=== PATIENT | female | born 1970 | race Caucasian/White ===

== ENCOUNTER → 2020-01-31 09:45 | Outpatient (CLI) | payer OTHER, SELFPAY ==
--- NOTE | 2020-01-31 09:52 | XR_ITS ---
PROCEDURE: XR ANKLE WT BEARING LT MIN 3V CLINICAL INDICATION: pain COMPARISON: ANKR3 ANKLE-RT-3 VIEWS from 12/19/2015 ANKR3 ANKLE-RT-3 VIEWS from 03/27/2017 XR ANKLE WT BEARING RT MIN 3V from 01/31/2020 XR FOOT WT BEARING LT 3V from 01/31/2020 FINDINGS: Hypertrophic changes are present along the neck of the talus anteriorly and could be seen with impingement. Normal alignment. No fracture or dislocation. No lytic or blastic change IMPRESSION: Minimal hypertrophic change mid aspect of the talus anteriorly otherwise negative Dictated by: Derek Skinner MD 01/31/2020 10:42 Electronically signed by Derek Skinner MD in [place] 01/31/2020 10:42
--- NOTE | 2020-01-31 09:52 | XR_ITS ---
PROCEDURE: XR FOOT WT BEARING RT 3V CLINICAL INDICATION: pain COMPARISON: No exams were available for comparison FINDINGS: No fracture or dislocation. No lytic or blastic change. There is normal mineralization. The joint spaces are well-preserved. No significant degenerative/arthritic changes. No erosive changes evident. Other findings:There is a small calcaneal spur with some minimal calcification along the base of the spur nonspecific IMPRESSION: Small calcaneal spur otherwise Dictated by: Derek Skinner MD 01/31/2020 10:39 Electronically signed by Derek Skinner MD in [place] 01/31/2020 10:39
--- NOTE | 2020-01-31 09:52 | XR_ITS ---
PROCEDURE: XR ANKLE WT BEARING RT MIN 3V CLINICAL INDICATION: pain COMPARISON: ANKR3 ANKLE-RT-3 VIEWS from 12/19/2015 ANKR3 ANKLE-RT-3 VIEWS from 03/27/2017 FINDINGS: No fracture or dislocation. No lytic or blastic change. There is normal mineralization. The joint spaces are well-preserved. No significant degenerative/arthritic changes. No erosive changes evident. Other findings:None. IMPRESSION: No acute findings. Dictated by: Derek Skinner MD 01/31/2020 10:40 Electronically signed by Derek Skinner MD in [place] 01/31/2020 10:40
== END ==
PROVIDERS: PCP Nurse Practitioner; Visit Provider Podiatrist
DX: M25.572 Pain in left ankle and joints of left foot (principal); M79.672 Pain in left foot; M25.571 Pain in right ankle and joints of right foot; M79.671 Pain in right foot
CPT/HCPCS: 73610; 73630

== ENCOUNTER → 2020-11-08 09:36 | Outpatient (CLI) | payer OTHER, SELFPAY ==
[2020-11-08 10:13] LABS: Basophils # 0.1 K/mm3 (0-0.2); Basophils % 0.6 % (0.1-2.0); Eosinophils # 0.3 K/mm3 (0.0-0.4); Eosinophils % 3.7 % (0.1-12.0); Hematocrit 42.7 % (37.0-47.0); Hemoglobin 13.9 g/dL (12.2-16.2); Lymphocytes # 3.5 K/mm3 (0.7-4.5); Mean Corpuscular HGB Conc 32.5 g/dL (31.8-35.4); Mean Corpuscular Hemoglobin 30.6 pg (27.0-31.2); Mean Corpuscular Volume 94.1 fl (81-99); Mean Platelet Volume 6.7 fl (7.4-10.4); Monocytes # 0.8 K/mm3 (0.1-1.0); Monocytes % 9.4 % (1.7-9.3); Neutrophils # 4.2 K/mm3 (1.8-7.8); Neutrophils % 47.2 % (37.0-80.0); Platelet Count 427 K/mm3 (142-424); Red Blood Count 4.54 M/mm3 (4.20-5.40); White Blood Count 8.9 K/mm3 (4.8-10.8)
[2020-11-08 11:05] LABS: Alanine Aminotransferase 19 U/L (12-78); Albumin Level 4.5 g/dl (3.5-5.0); Albumin/Globulin Ratio 1.5 (1.1-1.8); Alkaline Phosphatase 92 U/L (38-126); Anion Gap 15.2 mEq/L (5-15); Aspartate Amino Transferase 26 U/L (14-36); Bilirubin,Total 0.5 mg/dl (0.2-1.3); Blood Urea Nitrogen 10 mg/dl (7-17); Calcium 9.9 mg/dl (8.4-10.2); Carbon Dioxide 25 mmol/L (22.0-30.0); Chloride 104 mmol/L (98-107); Chol/HDL Ratio 3.8 (1-3.5); Cholesterol 216 mg/dl (140-200); Estimated Glomerular Filt Rate 106 ml/min (>60); GFR (African American) 129 ML/MIN (>60); Globulin 3.1 g/dL (1.3-3.2); Glucose 99 mg/dl (74-100); HDL Cholesterol 57 mg/dl (40-60); Potassium 4.2 mmoL/L (3.5-5.1); Sodium 140 mmol/L (136-145); Total Protein,Serum 7.6 g/dl (6.3-8.2); Triglycerides 116 mg/dl (30-150); VLDL Cholesterol 23 mg/dL (0-40)
[2020-11-08 11:15] LABS: Direct LDL Cholesterol 133.08 mg/dL (100-129)
[2020-11-08 11:22] LABS: 25-OH Vitamin D, Total 64.7 ng/mL (30-100); Triiodothryronine (T3) Uptake 24 % (23.5-40.5)
[2020-11-08 11:23] LABS: T4 (Thyroxine) 8.3 ug/dl (5.53-11.0)
[2020-11-08 11:36] LABS: Thyroid Stimulating Hormone 1.44 uIU/mL (0.465-4.68)
[2020-11-08 11:39] LABS: Ferritin 64.1 ng/ml (6.24-137)
[2020-11-08 11:53] LABS: Vitamin B12 565 pg/mL (239-931)
== END ==
PROVIDERS: Visit Provider Internal Medicine Adolescent Medicine
DX: I10 Essential (primary) hypertension (principal); G25.81 Restless legs syndrome; G57.93 Unspecified mononeuropathy of bilateral lower limbs
CPT/HCPCS: 36415; 80053; 80061; 82306; 82607; 82728; 84436; 84443; 84479; 85025

== ENCOUNTER → 2020-11-09 10:20 | Outpatient (CLI) | payer OTHER, SELFPAY ==
[2020-11-10 11:08] LABS: Magnesium, Urine 3.9 mg/dL (Not Estab.)
[2020-11-10 12:24] LABS: Magnesium, Urine 24 Hr 33.2 mg/24 hr (12.0-293.0)
== END ==
PROVIDERS: Visit Provider Internal Medicine Adolescent Medicine
DX: I10 Essential (primary) hypertension (principal); G25.81 Restless legs syndrome; G57.93 Unspecified mononeuropathy of bilateral lower limbs
CPT/HCPCS: 83735

== ENCOUNTER → 2020-11-14 09:27 | Outpatient (CLI) | payer OTHER, SELFPAY ==
--- NOTE | 2020-11-14 09:31 | MM_ITS ---
PROCEDURE: MM DIG SCREENING MAMM BI W/CAD Digital Breast Tomosynthesis Included CLINICAL INDICATION: SCREENING There is no personal or family history of breast cancer. COMPARISON: Digital mammograms with CAD 11/08/2016 TECHNIQUE: Standard CC and MLO images and 3D Tomosynthesis was obtained. R2 CAD reviewed. FINDINGS: Mild scattered fibroglandular densities are seen in both breast on a of primarily fatty breast parenchyma. There are no CAD markings. There is a new small benign-appearing nodular density inner quadrant left breast best seen on the CC projection. Though this certainly has benign features a was not seen on the previous study and recommend the patient return for spot compression views and ultrasound for additional evaluation. There are no suspicious microcalcifications. IMPRESSION: Fibrofatty parenchyma with new lesion left breast BI-RAD Category: 0 Need Additional Imaging Evaluation FOLLOW-UP: IMM Immediate Follow-up Recommended (A letter has been sent to the patient regarding results of the study.) Dictated by: Dr. Nilson Mason MD 11/17/2020 10:40 Dr. Nilson Mason MD in [place] 11/17/2020 10:40
== END ==
PROVIDERS: PCP Internal Medicine Adolescent Medicine; Visit Provider Internal Medicine Adolescent Medicine
DX: Z12.31 Encounter for screening mammogram for malignant neoplasm of breast (principal)
CPT/HCPCS: 77063; 77067

== ENCOUNTER → 2020-12-04 13:37 | Outpatient (CLI) | payer OTHER, SELFPAY ==
--- NOTE | 2020-12-04 13:41 | MM_ITS ---
PROCEDURE: MM DIG MAMM DX UNILAT LT CAD Digital Breast Tomosynthesis Included Left breast ultrasound complete CLINICAL INDICATION: ABN MAMM Left breast nodule COMPARISON: MG DMSB DIGITAL MAMM-SCREEN BILATERAL from 09/18/2011 MG DMSB DIG MAMM-SCREEN TANIYA W/CAD from 11/08/2016 MG MM DIG SCREENING MAMM BI W/CAD from 11/14/2020 US US BREAST LT COMPLETE from 12/04/2020 TECHNIQUE: Spot-compression views and left breast ultrasound FINDINGS: There is a macrolobular well-circumscribed nodule measuring approximately 7 mm in the upper inner aspect of the left breast at the 11 o'clock region. No spiculations or architectural distortion. Left breast ultrasound: Scattered small lipomas are noted which do not account for the mammographic abnormality. In the upper inner quadrant at approximately 11 o'clock there is a complex hypoechoic lesion measuring 6 x 5 mm. There does appear to be some both solid and cystic components. This could be due to a complex cyst with some wall thickening. Ultrasound-guided FNA/core biopsy suggested. Mammotome biopsy not recommended due to prominent traversing vein just along the superficial aspect of the nodule. IMPRESSION: Mildly suspicious findings. Complex cyst 6 x 5 mm upper inner quadrant left breast corresponding to mammographic abnormality. FNA with core biopsies suggested under sonographic guidance BI-RAD Category: 4 Suspicious Abnormality - Biopsy Considered FOLLOW-UP: BIO Biopsy Recommended (A letter has been sent to the patient regarding results of the study.) Dictated by: Derek Skinner MD 12/08/2020 13:30 Derek Skniner MD in [place] 12/08/2020 13:30
== END ==
PROVIDERS: PCP Internal Medicine Adolescent Medicine; Visit Provider Internal Medicine Adolescent Medicine
DX: R92.8 Other abnormal and inconclusive findings on diagnostic imaging of breast (principal)
CPT/HCPCS: 76641; 77061; 77065; G0279

== ENCOUNTER → 2020-12-26 12:32 | Outpatient (CLI) | payer OTHER, SELFPAY ==
--- NOTE | 2020-12-26 | MM_ITS ---
PROCEDURE: US FNA BREAST CLINICAL INDICATION: ABN MAMM Abnormal mammogram and ultrasound showing a macrolobular discordant nodule at the 11 o'clock region of the left breast. COMPARISON: MG DMSB DIG MAMM-SCREEN TANIYA W/CAD from 11/08/2016 MG MM DIG SCREENING MAMM BI W/CAD from 11/14/2020 US US BREAST LT COMPLETE from 12/04/2020 MG MM DIG MAMM DX UNILAT LT CAD from 12/04/2020 MG MM DIG MAMM DX UNILAT LT CAD from 12/26/2020 FINDINGS: Following obtaining informed consent and time-out procedure under aseptic conditions and local anesthesia with 1 percent buffered lidocaine with ultrasound guidance, a 21 gauge needle was inserted into the complex nodule at the 11 o'clock region and completely aspirated with less than 1 mL of dark fluid obtained. This was sent to cytology for analysis. The patient tolerated the procedure well without evidence of immediate complication. Post aspiration mammogram: The macrolobular nodule in the medial aspect of the left breast is much less apparent. There is some residual asymmetry in this region which may well be related to fibroglandular tissue. Post aspiration changes are present with some some minimal amount of air density and lidocaine infiltration in the soft tissues. Cytology: Negative for malignancy with findings compatible with a benign cyst. IMPRESSION: Uneventful ultrasound-guided FNA of the left breast as detailed above showing benign findings. It is felt that the mammographic and sonographic findings are concordant. Recommend six-month mammographic and sonographic follow-up per routine post aspiration protocol Dictated by: Derek Skinner MD 01/05/2021 08:49 Derek Skinner MD in [place] 01/05/2021 08:49
== END ==
PROVIDERS: PCP Internal Medicine Adolescent Medicine; Visit Provider Internal Medicine Adolescent Medicine
DX: R92.8 Other abnormal and inconclusive findings on diagnostic imaging of breast (principal); N63.20 Unspecified lump in the left breast, unspecified quadrant
CPT/HCPCS: 10005; 77061; 77065; G0279

== ENCOUNTER → 2021-11-27 12:36 | Outpatient (CLI) | payer OTHER, SELFPAY ==
--- NOTE | 2021-11-27 12:45 | MM_ITS ---
PROCEDURE INFORMATION: Exam: MG Bilateral Diagnostic Breast Tomosynthesis Exam date and time: 11/27/2021 1:01 PM Age: 51 years old Clinical indication: Six-month follow-up post benign aspiration for left nodule at 11 o'clock, 01/05/2021, followed on mammogram since 12/04/2020. TECHNIQUE: Imaging protocol: Bilateral Diagnostic tomosynthesis and 2D mammography including computer-aided detection (CAD) when performed. Unilateral or bilateral exam. COMPARISON: 1. MG MM DIG MAMM DX UNILAT LT CAD 12/26/2020 1:50 PM 2. MG MM DIG MAMM DX UNILAT LT CAD 12/04/2020 2:05 PM 3. MG MM DIG SCREENING MAMM BI W/CAD 11/14/2020 9:32 AM 4. MG DMSB DIG MAMM-SCREEN TANIYA W/CAD 11/08/2016 10:33 AM FINDINGS: MAMMOGRAPHY: Breast composition: Mass: Stable 0.4 cm oval nodule in the upper inner breast, middle 3rd (which partly overlaps a bend in the vessel in the CC view), compared to 11/17/2020. No new or suspicious mass. Architectural distortion: None. Calcifications: No suspicious calcifications. Asymmetric density: None. Skin thickening: None. Axillary adenopathy: None. IMPRESSION: Stable probably benign nodule in the upper inner breast, suggest continued 6 month follow up left diagnostic mammogram in 6 months unless otherwise clinically indicated. Please note that the report from 01/05/2021 recommended mammographic and sonographic follow-up, if the ultrasound has not already been performed, please recall for left breast ultrasound at this time. ASSESSMENT: See comment BI-RADS Category 3: Probably benign
== END ==
PROVIDERS: PCP Internal Medicine Adolescent Medicine; Visit Provider Internal Medicine Adolescent Medicine
DX: R92.8 Other abnormal and inconclusive findings on diagnostic imaging of breast (principal)
CPT/HCPCS: 77062; 77066; G0279

== ENCOUNTER → 2021-12-25 10:05 | Outpatient (CLI) | payer OTHER, SELFPAY ==
--- NOTE | 2021-12-25 10:08 | US_ITS ---
PROCEDURE INFORMATION: Exam: US Left Breast, Complete Exam date and time: 12/25/2021 10:31 AM Age: 51 years old Clinical indication: Six-month follow-up for post benign aspiration left nodule at 11 o'clock 12/26/2020 (with related dictation 01/05/2021) and returns at this time. Recent mammogram 11/27/2021. TECHNIQUE: Imaging protocol: Complete ultrasound of all four quadrants of the Left breast and the retroareolar regions, including ultrasound of the axilla when performed. COMPARISON: SD US FNA BREAST 12/26/2020 1:09 PM FINDINGS: Breast: Left sonography, all 4 quadrants, retroareolar and axilla. At the FNA site, 11 o'clock 7 cm from the nipple, residual mildly complicated cyst measuring 0.3 x 0.2 cm, which measured 0.6 by 0.6 x 0.4 cm preprocedure on 12/04/2020. Scattered echogenic masses, compatible with lipomas, at 1 o'clock measuring 0.5 x 0.2 x 0.5 cm, which measured x 0.4 x 0.4 x 0.3 cm on 12/04/2020nd at 9 o'clock 5 cm from the nipple measuring 0.6 x 0.8 x 0.4 cm which measured 0.5 x 0.6 x 0.4 cm on 12/04/2020. The superficial echogenic region noted at 10 o'clock on 12/04/2020 is not demonstrated. No suspicious cystic or solid mass demonstrated. Sonographically unremarkable left axillary lymph node. IMPRESSION: No sonographic evidence of malignancy. Annual mammographic screening is recommended unless otherwise clinically indicated. ASSESSMENT: BI-RADS Category 2: Benign
== END ==
PROVIDERS: PCP Internal Medicine Adolescent Medicine; Visit Provider Internal Medicine Adolescent Medicine
DX: R92.8 Other abnormal and inconclusive findings on diagnostic imaging of breast (principal)
CPT/HCPCS: 76641

== ENCOUNTER → 2023-01-13 07:58 | Outpatient (CLI) | payer OTHER, SELFPAY ==
--- NOTE | 2023-01-13 08:02 | MM_ITS ---
PROCEDURE INFORMATION: Exam: MG Bilateral Screening 3D Mammography Exam date and time: 01/13/2023 7:54 AM Age: 52 years old Clinical indication: Screening examination TECHNIQUE: Imaging protocol: Bilateral Screening tomosynthesis and 2D mammography including computer-aided detection (CAD) when performed. COMPARISON: 1. MG MM DIG MAMM BI DX W/CAD 11/27/2021 1:01 PM 2. MG MM DIG MAMM DX UNILAT LT CAD 12/26/2020 1:50 PM FINDINGS: MAMMOGRAPHY: Breast composition: The breasts are almost entirely fatty. Mass: None. Architectural distortion: None. Calcifications: No suspicious calcifications. Asymmetric density: None. Skin thickening: None. Axillary adenopathy: None. IMPRESSION: No mammographic evidence of malignancy. Annual screening is recommended unless otherwise clinically indicated. ASSESSMENT: BI-RADS Category 1: Negative
== END ==
PROVIDERS: PCP Internal Medicine Adolescent Medicine; Visit Provider Internal Medicine Adolescent Medicine
DX: Z12.31 Encounter for screening mammogram for malignant neoplasm of breast (principal)
CPT/HCPCS: 77063; 77067

== ENCOUNTER 2024-11-03 08:42 | Outpatient (CLI) | payer OTHER, SELFPAY ==
--- NOTE | 2024-11-03 | US_ITS ---
FINAL REPORT CLINICAL HISTORY: decreased pulses left foot, Left foot pain, D<. HTN. HLD FINDINGS: LOWER EXTREMITY SEGMENTAL PRESSURE MEASUREMENTS FINDINGS: Pressure indices are as follows: RIGHT LOWER EXTREMITY: Thigh: 1.26 Calf: 1.23 Ankle, posterior tibial artery: 1.30 Ankle, dorsalis pedis: 1.23 Toe: 0.86 ACACIA: 1.30 Comments: Within normal limits LEFT LOWER EXTREMITY: Thigh: 1.19 Calf: 1.08 Ankle, posterior tibial artery: 1.08 Ankle, dorsalis pedis: 1.15 Toe: 0.99 ACACIA: 1.15 Comments: Within normal limits IMPRESSION: No evidence of peripheral vascular disease in the bilateral lower extremities. Reviewed, Interpreted and Dictated by Constantine Lancaster MD Transcribed by Madeleine Denis Authenticated and [facility]
--- NOTE | 2024-11-03 09:05 | MM_ITS ---
PROCEDURE INFORMATION: Exam: MG Bilateral Screening 3D Mammography Exam date and time: 11/03/2024 9:31 AM Age: 54 years old Clinical indication: Screening examination TECHNIQUE: Imaging protocol: Bilateral Screening tomosynthesis and 2D mammography including computer-aided detection (CAD) when performed. COMPARISON: 1. MG MM DIG SCREENING MAMM BI W/CAD 01/13/2023 7:54 AM 2. MG MM DIG MAMM BI DX W/CAD 11/27/2021 1:01 PM FINDINGS: MAMMOGRAPHY: Breast composition: There are scattered areas of fibroglandular density. Mass: None. Architectural distortion: None. Calcifications: No suspicious calcifications. Asymmetric density: None. Skin thickening: None. Axillary adenopathy: None. IMPRESSION: No mammographic evidence of malignancy. Annual screening is recommended unless otherwise clinically indicated. ASSESSMENT: BI-RADS Category 1: Negative.
== END 2024-11-03 23:59 | disposition home or self-care (01) ==
LOC: RT 08:43
PROVIDERS: PCP Internal Medicine Adolescent Medicine; Visit Provider Internal Medicine Adolescent Medicine
DX: R09.89 Other specified symptoms and signs involving the circulatory and respiratory systems (principal); Z12.31 Encounter for screening mammogram for malignant neoplasm of breast
CPT/HCPCS: 77063; 77067; 93923

== ENCOUNTER 2025-02-03 09:58 | Outpatient (CLI) | payer OTHER, SELFPAY ==
--- NOTE | 2025-02-03 | CA_ITS ---
APPROVED REPORT Exam: Exercise Treadmill Technologist: Maite Stacy Ht: 5 ft 1 in Wt: 208 lbs BSA: 1.92 m2 HR: 74 bpm BP: 130/71 mmHg Medical History Cardiac Risk Factors: Hyperlipidemia, Diabetes (non-insulin), , FHX of CAD Stress Test Details HR Resting HR: 74 bpm Max Heart Rate (APMHR): 167.526486 bpm Target HR (85% APMHR): 141.365834 bpm Recovery HR: 122 bpm BP Resting BP: 130.0/71.0 mmHg Recovery BP: 198.0/93.0 mmHg ECG Stress ECG Conclusion During chandni protocol pt stopped due to fatigue. Pt experinced SOA. No arrhythmias noted. <1.5mm ST segment Electronically signed by : Vilma Pace MD 02/03/2025 12:37:42
== END 2025-02-03 23:59 | disposition home or self-care (01) ==
LOC: RT 09:59
PROVIDERS: PCP Internal Medicine Adolescent Medicine; Visit Provider Physician Assistant
DX: E78.5 Hyperlipidemia, unspecified (principal); I10 Essential (primary) hypertension; R68.89 Other general symptoms and signs; R06.00 Dyspnea, unspecified; Z82.49 Family history of ischemic heart disease and other diseases of the circulatory system
CPT/HCPCS: 93016; 93017; 93018

== ENCOUNTER 2025-03-09 09:46 | Outpatient (CLI) | payer OTHER, SELFPAY ==
--- NOTE | 2025-03-09 09:50 | XR_ITS ---
FINAL REPORT CLINICAL HISTORY: LUMBAGO WITH SCIATICA BOTH SIDES COMPARISON: None FINDINGS: LUMBOSACRAL SPINE SERIES Five views of the lumbosacral spine were obtained. There is no fracture present. There is no malalignment. There is mild anterior osteophyte formation L1-2 through L5-S1. Mild disc space narrowing is noted at L5-S1. There is moderate facet sclerosis in the lower lumbar spine. IMPRESSION: Hypertrophic changes of degenerative disc disease. Reviewed, Interpreted and Dictated by Codey Jones MD Transcribed by Madeleine Denis Authenticated and [facility]
== END 2025-03-09 23:59 | disposition home or self-care (01) ==
LOC: RAD 09:47
PROVIDERS: PCP Internal Medicine Adolescent Medicine; Visit Provider Internal Medicine Adolescent Medicine
DX: M51.17 Intervertebral disc disorders with radiculopathy, lumbosacral region (principal)
CPT/HCPCS: 72110